=== PATIENT | male | born 1990 | race African-American/Black ===

== ENCOUNTER 2019-09-09 12:34 | Emergency (ER) | payer OTHER ==
[~2019-09-09] VITALS: Ht 193 cm; Wt 141.5 kg
[2019-09-09 12:37] VITALS: BP 112/75; Ht 193 cm; Wt 141.5 kg
== END 2019-09-09 15:05 | disposition home or self-care (01) ==
LOC: ED 12:34
DX: H20.012 Primary iridocyclitis, left eye (principal); Z88.6 Allergy status to analgesic agent